=== PATIENT | male | born 1930 | race Caucasian/White ===

== ENCOUNTER 2017-05-15 05:43 | Inpatient (IN) | payer OTHER ==
[~2017-05-15] VITALS: Ht 188 cm; Wt 83.0 kg
[2017-05-15 06:49] LABS: HEMATOCRIT 35.6 % (38.0-50.0); HEMOGLOBIN 11.4 G/DL (12.5-16.6); MCH 29.2 PG (29.0-34.0); MCV 91.3 FL (86-99); PLATELET COUNT 157 K/uL (156-360); RBC DIS.WIDTH-CV 14.5 % (11.8-14.6); RBC DIS.WIDTH-SD 48.1 % (39-53); WHITE BLOOD COUNT 7.7 K/uL (4.1-10.2)
[2017-05-15 06:57] LABS: INTER. NORMALIZED RATIO 1.1
[2017-05-15 06:59] LABS: PTT 29.4 SEC (25-37)
[2017-05-15 08:39] LABS: ALBUMIN 3.1 G/DL (3.2-4.8); ALKALINE PHOSPHATASE 85 IU/L (3-129); ALT (GPT) 9 IU/L (3-49); AST (GOT) 14 IU/L (2-34); CHLORIDE 107 MEQ/L (99-109); CREATININE 0.6 MG/DL (0.6-1.3); GFR ESTIMATE (CALCULATED) > 59 mL/min/ (58.99-99999); GLUCOSE 104 mg/dL (70-99); LIPASE 4 U/L (1.0-51.0); POTASSIUM 3.8 MEQ/L (3.7-5.4); SODIUM 143 MEQ/L (136-147); TOTAL BILIRUBIN 0.5 MG/DL (0.0-1.0); TOTAL PROTEIN 5.4 G/DL (6.4-8.3); UREA NITROGEN (BUN) 13 mg/dL (9-23)
[2017-05-15] MEDS ORDERED: ZYLOPRIM300 MG PO (13:36)
[2017-05-15] MEDS ORDERED: LIPITOR40 MG PO (13:37)
[2017-05-15] MEDS ORDERED: PLAVIX75 MG PO (13:38)
[2017-05-15] MEDS ORDERED: PRINIVIL10 MG PO (13:39)
[2017-05-15] MEDS ORDERED: LISINOPRIL30 MG PO (13:44)
[2017-05-15] MEDS ORDERED: DITROPAN5 MG PO (13:45)
[2017-05-15] MEDS ORDERED: RISPERDAL0.5 MG PO (13:45)
[2017-05-15] MEDS ORDERED: FLOMAX0.4 MG PO (13:47)
[2017-05-15] MEDS ORDERED: ERGOCALCIF50000 UNIT PO (13:48)
[2017-05-15] MEDS ORDERED: COREG25 M1 PO (13:49)
[2017-05-15] MEDS ORDERED: DEPAKOTE125 MG PO (13:52)
[2017-05-15] MEDS ORDERED: NEURONTIN300 MG PO (13:53)
[2017-05-15] MEDS ORDERED: FLEET ENEMA-AD118 ML PR (13:54)
[2017-05-15] MEDS ORDERED: SYMBICORT60 INHALAT IH (13:54)
[2017-05-15] MEDS ORDERED: DULCOLAX10 MG PR (13:54)
[2017-05-15] MEDS ORDERED: MILK OF MAGN PO (13:55)
[2017-05-15] MEDS ORDERED: TYLENOL ARTHRI650 MG PO (13:56)
[2017-05-15 14:03] LABS: HEMATOCRIT 34.7 % (38.0-50.0); HEMOGLOBIN 11.4 G/DL (12.5-16.6); MCV 90.8 FL (86-99)
[2017-05-15 18:49] VITALS: BP 171/73
[2017-05-15 23:50] VITALS: BP 159/69
[2017-05-16 00:55] LABS: HEMATOCRIT 33.9 % (38.0-50.0); MCV 90.2 FL (86-99)
[2017-05-16 04:30] VITALS: BP 159/71
[2017-05-16 08:48] VITALS: BP 153/68
[2017-05-16 09:25] LABS: MCV 91.4 FL (86-99)
[2017-05-16 09:26] LABS: HEMATOCRIT 34.3 % (38.0-50.0); HEMOGLOBIN 11.1 G/DL (12.5-16.6); MCH 29.5 PG (29.0-34.0); MCHC 32.4 G/DL (30.0-36.0); MCV 91.2 FL (86-99); PLATELET COUNT 147 K/uL (156-360); RBC DIS.WIDTH-CV 14.6 % (11.8-14.6); RBC DIS.WIDTH-SD 48.5 % (39-53); RED BLOOD COUNT 3.76 M/uL (4.00-5.50)
[2017-05-16 09:50] LABS: ALBUMIN 3.1 G/DL (3.2-4.8); CHLORIDE 108 MEQ/L (99-109); CREATININE 0.7 MG/DL (0.6-1.3); GFR ESTIMATE (CALCULATED) > 59 mL/min/ (58.99-99999); GLUCOSE 110 mg/dL (70-99); PHOSPHORUS 2.6 mg/dL (2.5-4.9); POTASSIUM 3.9 MEQ/L (3.7-5.4); SODIUM 137 MEQ/L (136-147); UREA NITROGEN (BUN) 10 mg/dL (9-23)
[2017-05-16 11:24] VITALS: BP 177/78
[2017-05-16 15:35] VITALS: BP 182/77
[2017-05-16 15:54] LABS: HEMATOCRIT 34.5 % (38.0-50.0); HEMOGLOBIN 11.1 G/DL (12.5-16.6); MCV 90.6 FL (86-99)
[2017-05-16 20:30] VITALS: BP 145/63
[2017-05-16 23:00] VITALS: BP 154/77
[2017-05-17] VITALS (7 sets, daily range): BP systolic 132–185; BP diastolic 60–84
[2017-05-17 01:00] LABS: HEMATOCRIT 35.6 % (38.0-50.0); HEMOGLOBIN 11.7 G/DL (12.5-16.6); MCV 89.9 FL (86-99)
[2017-05-17 08:34] LABS: HEMATOCRIT 34.7 % (38.0-50.0); HEMOGLOBIN 11.2 G/DL (12.5-16.6); MCH 29.3 PG (29.0-34.0); MCHC 32.3 G/DL (30.0-36.0); MCV 90.8 FL (86-99); PLATELET COUNT 140 K/uL (156-360); RBC DIS.WIDTH-CV 14.6 % (11.8-14.6); RBC DIS.WIDTH-SD 48.2 % (39-53); RED BLOOD COUNT 3.82 M/uL (4.00-5.50); WHITE BLOOD COUNT 4.4 K/uL (4.1-10.2)
[2017-05-17 16:22] LABS: HEMATOCRIT 37.7 % (38.0-50.0); HEMOGLOBIN 12.3 G/DL (12.5-16.6); MCV 91.3 FL (86-99)
[2017-05-18] VITALS (8 sets, daily range): BP systolic 104–172; BP diastolic 65–77
[2017-05-18 00:43] LABS: HEMATOCRIT 37.7 % (38.0-50.0); HEMOGLOBIN 12.4 G/DL (12.5-16.6)
[2017-05-18 08:27] LABS: HEMATOCRIT 34.3 % (38.0-50.0); MCV 89.3 FL (86-99)
[2017-05-18 16:17] LABS: HEMATOCRIT 37.2 % (38.0-50.0); HEMOGLOBIN 11.9 G/DL (12.5-16.6); MCV 90.3 FL (86-99)
[2017-05-19 00:46] LABS: HEMATOCRIT 34.4 % (38.0-50.0); HEMOGLOBIN 11.2 G/DL (12.5-16.6); MCV 90.1 FL (86-99)
[2017-05-19 04:07] VITALS: BP 157/70
[2017-05-19 09:03] VITALS: BP 143/66
[2017-05-19 09:03] LABS: HEMATOCRIT 34.9 % (38.0-50.0); HEMOGLOBIN 11.3 G/DL (12.5-16.6); MCV 91.4 FL (86-99)
[2017-05-19] MEDS ORDERED: PANTOPRAZOLE SO40 MG PO (09:12)
== END 2017-05-19 11:52 | DRG 378 ==
LOC: EME 05:43 → 4SOUTH 13:00 → EDOF 13:00 → ENRESERV 13:20 → 4SOUTH 17:00
PROVIDERS: Emergency Medicine; Internal Medicine; Internal Medicine Gastroenterology; Nurse Practitioner Family
DX: K92.0 Hematemesis (principal); G30.9 Alzheimer's disease, unspecified; F02.80 Dementia in other diseases classified elsewhere, unspecified severity, without behavioral disturbance, psychotic disturbance, mood disturbance, and anxiety; M17.0 Bilateral primary osteoarthritis of knee; I10 Essential (primary) hypertension; I25.810 Atherosclerosis of coronary artery bypass graft(s) without angina pectoris; J43.9 Emphysema, unspecified; J90 Pleural effusion, not elsewhere classified; J98.11 Atelectasis; K80.20 Calculus of gallbladder without cholecystitis without obstruction; I70.0 Atherosclerosis of aorta; I70.8 Atherosclerosis of other arteries; R19.7 Diarrhea, unspecified; F32.9 Major depressive disorder, single episode, unspecified; Z95.0 Presence of cardiac pacemaker; Z98.61 Coronary angioplasty status; Z95.1 Presence of aortocoronary bypass graft; Z87.891 Personal history of nicotine dependence
CPT/HCPCS: 71045; 71046; 74177; 80053; 80069; 83690; 85014; 85018; 85027; 85610; 85730; 86850; 86900; 86901; 93005; 94640; 94640 76; 99281; 99285; C9113; J0360; J3480; J7030; J7042

== ENCOUNTER 2017-07-27 19:33 | Emergency (ER) | payer OTHER ==
[~2017-07-27] VITALS: Ht 175.3 cm; Wt 80.4 kg
[~2017-07-27 19:33] MED LIST: COREG25 M1 PO; DEPAKOTE125 MG PO; DITROPAN5 MG PO; DULCOLAX10 MG PR; ERGOCALCIF50000 UNIT PO; FLEET ENEMA-AD118 ML PR; FLOMAX0.4 MG PO; LIPITOR40 MG PO; LISINOPRIL30 MG PO; MILK OF MAGN PO; NEURONTIN300 MG PO; PANTOPRAZOLE SO40 MG PO; PLAVIX75 MG PO; PRINIVIL10 MG PO; RISPERDAL0.5 MG PO; SYMBICORT60 INHALAT IH; TYLENOL ARTHRI650 MG PO; ZYLOPRIM300 MG PO
[2017-07-27 20:44] LABS: BASOPHIL (%) 0.3 % (0-1); EOSINOPHIL (%) 1.3 % (0-5); EOSINOPHIL COUNT 0.1 K/uL (0-0.3); HEMATOCRIT 34.1 % (38.0-50.0); HEMOGLOBIN 10.9 G/DL (12.5-16.6); IMMATURE GRANULOCYTE (%) 0.3 % (0.0-0.7); LYMPHOCYTE (%) 20.9 % (15-42); LYMPHOCYTE COUNT 0.8 K/uL (1.0-2.8); MCH 27.5 PG (29.0-34.0); MCV 85.9 FL (86-99); MONOCYTE (%) 10.2 % (3-12); MONOCYTE COUNT 0.4 K/uL (0-0.8); NEUTROPHIL COUNT 2.6 K/uL (1.8-6.4); PLATELET COUNT 160 K/uL (156-360); RBC DIS.WIDTH-CV 14.6 % (11.8-14.6); RBC DIS.WIDTH-SD 46.3 % (39-53); RED BLOOD COUNT 3.97 M/uL (4.00-5.50); WHITE BLOOD COUNT 3.9 K/uL (4.1-10.2)
[2017-07-27 20:50] LABS: INTER. NORMALIZED RATIO 1.1
[2017-07-27 20:53] LABS: CHLORIDE 105 mEq/L (99-109); POTASSIUM 3.8 mEq/L (3.7-5.4); SODIUM 142 mEq/L (136-147)
[2017-07-27 20:54] LABS: MAGNESIUM 1.7 mg/dL (1.3-2.7)
[2017-07-27 20:56] LABS: GLUCOSE 113 mg/dL (70-99); TOTAL PROTEIN 5.9 g/dL (6.4-8.3)
[2017-07-27 20:58] LABS: TOTAL BILIRUBIN 0.6 mg/dL (0.0-1.0)
[2017-07-27 20:59] LABS: ALKALINE PHOSPHATASE 104 IU/L (3-129)
[2017-07-27 21:00] LABS: CREATININE 0.6 mg/dL (0.6-1.3); GFR ESTIMATE (CALCULATED) > 59 mL/min/ (58.99-99999)
[2017-07-27 21:01] LABS: AST (GOT) 29 IU/L (2-34); UREA NITROGEN (BUN) 15 mg/dL (9-23)
[2017-07-27 21:03] LABS: ALT (GPT) 27 IU/L (3-49); PTT 29.6 SEC (25-37)
[2017-07-27 21:05] LABS: TROP-I INTERPRETATION NEGATIVE; TROPONIN-I 0.04 ng/mL (0.0-0.30)
[2017-07-27 21:21] LABS: APPEARANCE CLEAR ((CLEAR)); BILIRUBIN NEGATIVE; BLOOD NEGATIVE; COLOR YELLOW ((YELLOW)); GLUCOSE (STRIP) NEGATIVE; KETONES NEGATIVE; LEUKOCYTES NEGATIVE; NITRITE NEGATIVE; PROTEIN (STRIP) NEGATIVE; SPECIFIC GRAVITY 1.021 (1.000-1.030); UCUL ADDED? NO
[2017-07-27 21:41] LABS: VALPROIC ACID (DEPAKOTE) 16.7 MCG/ML (50-100)
[2017-07-27] MEDS ORDERED: LEVOFLOXAC750 MG/150 IV (23:48)
[2017-07-28 01:24] VITALS: BP 164/71
== END 2017-07-28 01:30 ==
LOC: EME 19:33
PROVIDERS: Emergency Medicine
DX: J69.0 Pneumonitis due to inhalation of food and vomit (principal); J90 Pleural effusion, not elsewhere classified; J44.9 Chronic obstructive pulmonary disease, unspecified; F03.90 Unspecified dementia, unspecified severity, without behavioral disturbance, psychotic disturbance, mood disturbance, and anxiety; R13.10 Dysphagia, unspecified; I10 Essential (primary) hypertension; Z87.891 Personal history of nicotine dependence
CPT/HCPCS: 71045; 71250; 80053; 80164; 81003; 83605; 83735; 84484; 85025; 85610; 85730; 87040; 93005; J1956

== ENCOUNTER 2017-08-20 21:35 | Inpatient (IN) | payer OTHER ==
[~2017-08-20] VITALS: Ht 170.2 cm; Wt 75.5 kg
[~2017-08-20 21:35] MED LIST changes: +LEVOFLOXAC750 MG/150 IV; -LISINOPRIL30 MG PO; +PRINIVIL20 MG PO; +RISPERDAL0.25 MG PO; -RISPERDAL0.5 MG PO; -TYLENOL ARTHRI650 MG PO; +TYLENOL REGULA325 MG PO; +ZYLOPRIM100 MG PO; -ZYLOPRIM300 MG PO
[2017-08-20 22:04] LABS: HEMATOCRIT 34.5 % (38.0-50.0); HEMOGLOBIN 11.1 G/DL (12.5-16.6); MCH 27.1 PG (29.0-34.0); MCHC 32.2 G/DL (30.0-36.0); MCV 84.1 FL (86-99); PLATELET COUNT 197 K/uL (156-360); RBC DIS.WIDTH-CV 16.1 % (11.8-14.6); RBC DIS.WIDTH-SD 48.3 % (39-53); WHITE BLOOD COUNT 7.7 K/uL (4.1-10.2)
[2017-08-20 22:14] LABS: INTER. NORMALIZED RATIO 1.2
[2017-08-20] MEDS ORDERED: TYLENOL REGULA325 MG PO (22:24)
[2017-08-20 22:25] LABS: TROP-I INTERPRETATION NEGATIVE; TROPONIN-I 0.03 ng/mL (0.0-0.30)
[2017-08-20] MEDS ORDERED: IRON325 M1 PO (22:26)
[2017-08-20] MEDS ORDERED: PRILOSEC20 MG PO (22:27)
[2017-08-20] MEDS ORDERED: TRAMADOL HCL50 MG PO (22:29)
[2017-08-20 22:32] LABS: PTT 44.9 SEC (25-37)
[2017-08-20 22:34] LABS: AMYLASE 25 IU/L (1-118); CHLORIDE 107 mEq/L (99-109); POTASSIUM 4.3 mEq/L (3.7-5.4); SODIUM 140 mEq/L (136-147)
[2017-08-20 22:35] LABS: GLUCOSE 141 mg/dL (70-99)
[2017-08-20 22:39] LABS: CREATININE 0.7 mg/dL (0.6-1.3); GFR ESTIMATE (CALCULATED) > 59 mL/min/ (58.99-99999)
[2017-08-20 22:40] LABS: UREA NITROGEN (BUN) 16 mg/dL (9-23)
[2017-08-20 22:42] LABS: LIPASE 7 U/L (1.0-51.0)
[2017-08-20 22:52] LABS: AMPHETAMINE NEGATIVE (500 ng/mL); BARBITURATES NEGATIVE (200 ng/mL); BENZODIAZEPINES NEGATIVE (150 ng/mL); BUPRENORPHINE NEGATIVE (10 ng/mL); COCAINE NEGATIVE (150 ng/mL); METHADONE NEGATIVE (200 ng/mL); METHAMPHETAMINE NEGATIVE (500 ng/mL); OPIATES (MORPHINE) NEGATIVE (100 ng/mL); OXYCODONE NEGATIVE (100 ng/mL); PHENCYCLIDINE NEGATIVE (25 ng/mL); PROPOXYPHENE NEGATIVE (300 ng/mL); THC CANNABINOIDS NEGATIVE (50 ng/mL); TRICYCLIC ANTIDEPRESSANTS NEGATIVE (300 ng/mL)
[2017-08-21] VITALS (7 sets, daily range): BP systolic 142–181; BP diastolic 62–79
[2017-08-21 02:29] LABS: APPEARANCE SL.HAZY ((CLEAR)); BILIRUBIN NEGATIVE; BLOOD NEGATIVE; COLOR YELLOW ((YELLOW)); GLUCOSE (STRIP) NEGATIVE; KETONES NEGATIVE; LEUKOCYTES NEGATIVE; NITRITE POSITIVE; PROTEIN (STRIP) NEGATIVE; SPECIFIC GRAVITY 1.019 (1.000-1.030)
[2017-08-21 02:34] LABS: BACTERIA NONE SEEN /HPF; EPITHELIAL CELLS NONE SEEN /HPF; MUCUS NONE SEEN /LPF; RED BLOOD CELLS 0-5 /HPF (0-5); WHITE BLOOD CELLS 0-5 /HPF (0-5)
[2017-08-21 11:43] LABS: HDL CHOLESTEROL 30 MG/DL (Desirable>=40); LDL CHOLESTEROL 92 mg/dL (Desirable<100); NON-HDL CHOLESTEROL 102 mg/dL (Desirable<160); TOTAL CHOLESTEROL 132 mg/dL (Desirable<200); TRIGLYCERIDES 51 MG/DL (Normal: <150)
[2017-08-22 03:30] VITALS: BP 147/68
[2017-08-22 08:03] VITALS: BP 182/80
[2017-08-22 10:19] LABS: HEMOGLOBIN A1c (GLYCOHEMOGLOB) 5.6 % (Below 5.7)
[2017-08-22 12:00] VITALS: BP 167/71
[2017-08-22 15:36] VITALS: BP 138/63
[2017-08-22 19:44] VITALS: BP 136/65
[2017-08-23 00:11] VITALS: BP 149/66
[2017-08-23 03:56] VITALS: BP 176/71
[2017-08-23 07:14] VITALS: BP 139/63
[2017-08-23 11:15] VITALS: BP 138/61
[2017-08-23 15:39] VITALS: BP 141/63
== END 2017-08-23 19:20 | DRG 69 ==
LOC: EME 21:35 → EDOF 08-21 01:00 → 5SOUTH 08-21 01:00 → ENRESERV 08-21 01:39 → 5SOUTH 08-21 02:41
PROVIDERS: Emergency Medicine; Internal Medicine
DX: G45.9 Transient cerebral ischemic attack, unspecified (principal); G81.91 Hemiplegia, unspecified affecting right dominant side; R47.01 Aphasia; E86.0 Dehydration; L89.620 Pressure ulcer of left heel, unstageable; J44.9 Chronic obstructive pulmonary disease, unspecified; G30.9 Alzheimer's disease, unspecified; F02.80 Dementia in other diseases classified elsewhere, unspecified severity, without behavioral disturbance, psychotic disturbance, mood disturbance, and anxiety; I10 Essential (primary) hypertension; I25.10 Atherosclerotic heart disease of native coronary artery without angina pectoris; M17.0 Bilateral primary osteoarthritis of knee; F32.9 Major depressive disorder, single episode, unspecified; N40.1 Benign prostatic hyperplasia with lower urinary tract symptoms; R33.8 Other retention of urine; R29.714 NIHSS score 14; Z51.5 Encounter for palliative care; Z66 Do not resuscitate; Z86.73 Personal history of transient ischemic attack (TIA), and cerebral infarction without residual deficits; Z95.0 Presence of cardiac pacemaker; Z95.1 Presence of aortocoronary bypass graft; Z87.891 Personal history of nicotine dependence
CPT/HCPCS: 70450; 70496; 70498; 71045; 73630; 80048; 80061; 81003; 82150; 82948; 83036; 83690; 84484; 85027; 85610; 85730; 92526 GN; 92610 GN; 93005; 93880; 99281; 99283; A6214; J1644; J7030

== ENCOUNTER 2017-09-22 13:41 | Emergency (ER) | payer OTHER ==
[~2017-09-22] VITALS: Ht 160 cm; Wt 68.8 kg
[~2017-09-22 13:41] MED LIST changes: +IRON325 M1 PO; +PRILOSEC20 MG PO; +TRAMADOL HCL50 MG PO
[2017-09-22 15:25] LABS: BASOPHIL (%) 0.7 % (0-1); BASOPHIL COUNT 0.1 K/uL (0-0.1); EOSINOPHIL (%) 1.4 % (0-5); EOSINOPHIL COUNT 0.1 K/uL (0-0.3); HEMATOCRIT 35.5 % (38.0-50.0); IMMATURE GRANULOCYTE (%) 0.3 % (0.0-0.7); LYMPHOCYTE (%) 14.9 % (15-42); LYMPHOCYTE COUNT 1.1 K/uL (1.0-2.8); MCH 26.7 PG (29.0-34.0); MCV 86.2 FL (86-99); MONOCYTE (%) 8.5 % (3-12); MONOCYTE COUNT 0.6 K/uL (0-0.8); NEUTROPHIL (%) 74.2 % (45-76); NEUTROPHIL COUNT 5.3 K/uL (1.8-6.4); PLATELET COUNT 212 K/uL (156-360); RBC DIS.WIDTH-CV 17.1 % (11.8-14.6); RBC DIS.WIDTH-SD 53.6 % (39-53); RED BLOOD COUNT 4.12 M/uL (4.00-5.50); WHITE BLOOD COUNT 7.1 K/uL (4.1-10.2)
[2017-09-22 15:33] LABS: ALBUMIN 2.9 g/dL (3.2-4.8); CHLORIDE 107 mEq/L (99-109); POTASSIUM 4.6 mEq/L (3.7-5.4); SODIUM 138 mEq/L (136-147)
[2017-09-22 15:35] LABS: GLUCOSE 116 mg/dL (70-99)
[2017-09-22 15:36] LABS: TOTAL PROTEIN 6.2 g/dL (6.4-8.3)
[2017-09-22 15:37] LABS: TOTAL BILIRUBIN 0.5 mg/dL (0.0-1.0)
[2017-09-22 15:39] LABS: ALKALINE PHOSPHATASE 128 IU/L (3-129); CREATININE 0.7 mg/dL (0.6-1.3); GFR ESTIMATE (CALCULATED) > 59 mL/min/ (58.99-99999)
[2017-09-22 15:40] LABS: UREA NITROGEN (BUN) 16 mg/dL (9-23)
[2017-09-22 15:41] LABS: AST (GOT) 10 IU/L (2-34)
[2017-09-22 15:42] LABS: ALT (GPT) 10 IU/L (3-49)
[2017-09-22 15:48] LABS: TROP-I INTERPRETATION NEGATIVE; TROPONIN-I 0.03 ng/mL (0.0-0.30)
[2017-09-22] MEDS ORDERED: AUGMENTIN875 MG PO (17:27)
[2017-09-22 21:18] VITALS: BP 154/68
== END 2017-09-22 21:25 ==
LOC: EME 13:41
PROVIDERS: Emergency Medicine
DX: T17.920A Food in respiratory tract, part unspecified causing asphyxiation, initial encounter (principal); X58.XXXA Exposure to other specified factors, initial encounter; F03.90 Unspecified dementia, unspecified severity, without behavioral disturbance, psychotic disturbance, mood disturbance, and anxiety; R13.10 Dysphagia, unspecified; J90 Pleural effusion, not elsewhere classified; I10 Essential (primary) hypertension; Z87.891 Personal history of nicotine dependence
CPT/HCPCS: 71045; 71046; 80053; 83605; 84484; 85025; 87040; 93005; 99281; 99285; J1956